=== PATIENT | female | born 1990 | race African-American/Black ===

== ENCOUNTER 2018-05-25 08:16 | Outpatient (CLI) | payer OTHER ==
--- NOTE | 2018-05-25 11:24 | Ultrasound Report ---
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 FINDINGS: The breasts are extremely dense, which limits the sensitivity mammography.No mass, architectural distortion or suspicious calcifications. Ultrasound of the right breast (including all four quadrants and the retroareolar area) demonstrated normal fibroglandular and fatty structures. No mass, cyst or shadowing. A right axillary lymph node has central fat a benign morphology and measures 1.1 x 0.5 x 0.7 cm. Ultrasound of the left breast (including all four quadrants and the retroareolar area) was performed. An oval slightly irregular solid hypoechoic mass at 8 o'clock 4 cm from the nipple measures 9 x 4 x 9 mm. Ultrasound of the left axilla demonstrated a single lymph node with central fat and benign morphology measuring 1.9 x 0.5 x 1.1 cm. IMPRESSION: 1. A solid 9 mm left breast mass at 8 o'clock 4 cm from the nipple. Recommend ultrasound-guided needle core biopsy of the left breast to exclude malignancy.2. Negative right breast. BI-RADS CATEGORY: 4--Suspicious I discussed the findings and the recommendation for a left needle core breast biopsy with the patient at the time of the examination. COMMENT: Patient follow-up letters are generated by our [employer] application.
== END 2018-05-25 08:17 | disposition home or self-care (01) ==
LOC: SPVWC 08:16
PROVIDERS: ATTEND Family Medicine
DX: R92.8 Other abnormal and inconclusive findings on diagnostic imaging of breast (principal)
CPT/HCPCS: 77066; 77067

== ENCOUNTER 2018-06-04 12:50 | Outpatient (CLI) | payer OTHER ==
--- NOTE | 2018-06-04 15:57 | History and Physical Report ---
History of Present Illness Date of examination: 06/04/18 Chief complaint: lt.breast nodule on u/s Medications and Allergies Allergies Allergy/AdvReac Type Severity Reaction Status Date / Time No Known Allergies Allergy Unverified 09/03/15 13:15
--- NOTE | 2018-06-04 15:59 | Procedure Note ---
Date of procedure: 06/04/18 Pre-op diagnosis: lt breast nodule Post-op diagnosis: same Procedure: u/s guided lt breast bx Findings: solid tissue Anesthesia: local Surgeon: CHELE PEARSON Estimated blood loss: none Pathology: list (lt breast) Specimen disposition: to lab Condition: stable Disposition: same day
--- NOTE | 2018-06-04 16:00 | Ultrasound Report ---
Ultrasound-guided left breast biopsy, marker placement, left mammogram: The patient presents with a hypoechoic lesion in the 8:00 location near the nipple. A lateral approach utilized. The skin was cleansed and draped. 1% lidocaine used for local anesthesia. A 13-gauge introducer was placed through which a 14-gauge Bard biopsy disposable spring-loaded device was utilized to take multiple sections through the lesion and ultrasound guidance. A marker was left in place under ultrasound observation. The entrance site was bandaged. A two-view mammogram confirmed positioning of the marker. There were no complications. The patient was given followup instructions and discharged.
== END 2018-06-04 12:51 | disposition home or self-care (01) ==
LOC: SPVWC 12:50
PROVIDERS: ATTEND Family Medicine
DX: N60.22 Fibroadenosis of left breast (principal); N61.0 Mastitis without abscess
CPT/HCPCS: 19083; 77065; 88305; A4648

== ENCOUNTER 2019-01-20 08:03 | Emergency (ER) | payer OTHER ==
[2019-01-20] MEDS ORDERED: NACL 0.9% 1000 ML 1,000 ML IV ONE (09:05)
[2019-01-20] MEDS ORDERED: KEPPRA 1,000 MG/NS 0.75% 100ML 1,000 MG/100 ML BAG IV ONE (09:08)
--- NOTE | 2019-01-20 09:10 | Emergency Department Report ---
ED Seizure HPI - General Chief Complaint: Seizure Stated Complaint: SEIZURE Time Seen by Provider: 01/20/19 08:52 Source: patient Mode of arrival: Stretcher Limitations: Altered Mental Status - History of Present Illness Initial Comments: 28-year-old Female presents to the ED following a seizure at home. Patient has history of ataxia, diagnosed a few months ago, however patient has apparently been symptomatic for approximately 2 years. Patient gets around using a walker. Patient has been having pain attacks that started in left leg and radiates up into her core. This is associated with a sharp and burning pain. Patient went to [facility] to visit family one month ago, returned 2 days ago. Patient states shortly after arriving in [facility] both legs became weak and she was unable to walk. States she got around in a wheelchair while she was there. During that time, she also began having pain attacks which included both legs, not just the left leg. Patient currently on Lyrica, however she states it does not seem to help her symptoms. Patient has baseline head and neck tremor, states tremors worsen and become generalized during her pain attacks, however she is usually awake and alert while this is happening. Boyfriend states this morning patient had a pain attack and began with her normal tremor which then generalized. He also reports patient's arms were extended out in front of her, which does not usually happen with her pain attacks. Patient was unresponsive, and also drooling from her mouth. The boyfriend states this lasted approximately 10 minutes. No history of seizures in the past. Patient denies fever, recent illn ess, or headache. LMP was last month. MD Complaint: seizure -: This morning Description of Episode: loss of consciousness, tonic-clonic movement -: minutes(s) (10) Witnessed:: Yes Trauma: No Seizure History: none Place: home Associated Symptoms: denies: chest pain, cough, fever/chills, shortness of breath - Related Data Allergies Allergy/AdvReac Type Severity Reaction Status Date / Time No Known Allergies Allergy Unverified 09/03/15 13:15 ED Review of Systems ROS: Stated complaint: SEIZURE Other details as noted in HPI Comment: All other systems reviewed and negative Constitutional: denies: chills, fever Respiratory: denies: cough, shortness of breath Cardiovascular: denies: chest pain Neurological: denies: headache ED Past Medical Hx - Past Medical History Previous Medical History?: Yes Hx of Cancer: Yes (ovarian) Additional medical history: li-fraumeni syndrome, chemo rt ataxia - Surgical History Past Surgical History?: Yes Hx Appendectomy: Yes (double mastectomy) Additional Surgical History: tumor removal - Social History Smoking Status: Never Smoker Substance Use Type: Marijuana ED Physical Exam - General Limitations: No Limitations General appearance: alert, in no apparent distress - Head Head exam: Present: atraumatic, normocephalic - Eye Eye exam: Present: normal appearance, PERRL, EOMI - ENT ENT exam: Present: mucous membranes moist - Neck Neck exam: Present: normal inspection - Respiratory Respiratory exam: Present: normal lung sounds bilaterally. Absent: respiratory distress - Cardiovascular Cardiovascular Exam: Present: normal rhythm, tachycardia - GI/Abdominal GI/Abdominal exam: Present: rigid. Absent: tenderness - Extremities Exam Extremities exam: Present: normal inspection - Neurological Exam Neurological exam: Present: alert, oriented X3, motor sensory deficit (bilat lower extremity weakness 3/5), other (head and neck resting tremor noted) - Psychiatric Psychiatric exam: Present: flat affect - Skin Skin exam: Present: warm, dry, intact, normal color ED Course Vital Signs 01/20/19 01/20/19 01/20/19 08:27 08:30 08:46 Temperature 99 F Pulse Rate 115 H 112 H 120 H Respiratory 16 14 21 Rate Blood Pressure 139/100 138/93 O2 Sat by Pulse 98 99 98 Oximetry 01/20/19 01/20/19 01/20/19 09:00 09:15 09:30 Temperature Pulse Rate 114 H 104 H 99 H Respiratory 20 11 L 17 Rate Blood Pressure 142/100 94/69 107/69 O2 Sat by Pulse 98 99 99 Oximetry 01/20/19 01/20/19 01/20/19 09:45 10:00 10:20 Temperature Pulse Rate 111 H 109 H Respiratory 25 H 14 Rate Blood Pressure 134/96 94/69 O2 Sat by Pulse 100 98 99 Oximetry 01/20/19 01/20/19 01/20/19 10:30 10:46 11:00 Temperature Pulse Rate 102 H 99 H 86 Respiratory 13 11 L 12 Rate Blood Pressure O2 Sat by Pulse 99 98 98 Oximetry 01/20/19 01/20/19 01/20/19 11:16 11:30 11:46 Temperature Pulse Rate 97 H 112 H 116 H Respiratory 13 17 13 Rate Blood Pressure O2 Sat by Pulse 98 99 98 Oximetry 01/20/19 01/20/19 12:00 12:16 Temperature Pulse Rate 91 H 113 H Respiratory 11 L 14 Rate Blood Pressure O2 Sat by Pulse 98 97 Oximetry - Reevaluation(s) Reevaluation #1: 01/20/19 11:05 Boyfriend states he spoke w/ pt's neurologist, Dr Terrell Le. Wants pt transferred to [place]. Attempted to contact him at [phone], however no answer. Will contact [place] Transfer Line. - Consultations Consultation #1: 01/20/19 11:35 Transfer accepted at [place] by Dr Blanca Davis, neurologist. ED Medical Decision Making - Lab Data Result diagrams: 01/20/19 09:24 01/20/19 09:24 - Radiology Data Radiology results: report reviewed, image reviewed - Medical Decision Making No further seizures here in ED. Tachycardia resolved at this time, however, pt becomes tachycardic into the 130s during her pain episodes, which have occurred multiple times here in the ED. Pt has been given 1L NS bolus, Keppra 1g bolus. Spoke w/ [facility] neurologist, Dr Davis. Accepts transfer. Awaiting room assignment and transport. - Differential Diagnosis CVA, electrolyte abnormality, infection Critical care attestation.: If time is entered above; I have spent that time in minutes in the direct care of this critically ill patient, excluding procedure time. ED Disposition Clinical Impression: Seizure, Ataxia Disposition: [id number]/TX-[id number] ANOTHER TYPE [facility] Is pt being admited?: No Condition: Stable Referrals: MARLENE EDMONDS MD [Primary Care Provider] - 3-5 Days Time of Disposition: 11:35
[2019-01-20 09:36] LABS: Basophils % (Auto) 0.4 % (0.0-1.8); Eosinophils % (Auto) 0.4 % (0.0-4.3); Hemoglobin 11.7 gm/dl (10.1-14.3); Lymphocytes # (Auto) 1.1 K/mm3 (1.2-5.4); Lymphocytes % (Auto) 10.3 % (13.4-35.0); Mean Corpuscular HGB Conc 34 % (30-34); Mean Corpuscular Volume 88 fl (79-97); Monocytes # (Auto) 0.6 K/mm3 (0.0-0.8); Monocytes % (Auto) 5.4 % (0.0-7.3); Platelet Count 372 K/mm3 (140-440); Red Cell Distribution Width 15.3 % (13.2-15.2)
[2019-01-20 09:52] LABS: BUN/Creatinine Ratio 26; Blood Urea Nitrogen 18 mg/dL (7-17); Calcium 9.8 mg/dL (8.4-10.2); Hemolysis Index 8
[2019-01-20 09:55] LABS: Bacteria,Urine 1+ /HPF (Negative); Bilirubin,Urine NEG (Negative); Blood,Urine NEG (Negative); Color,Urine Yellow (Yellow); Mucus,Urine FEW /HPF; Protein,Urine <15 mg/dL mg/dL (Negative); Urobilinogen,Urine < 2.0 mg/dL (<2.0)
[2019-01-20 09:55] LABS: Alanine Aminotransferase 24 units/L (7-56); Albumin 4.3 g/dL (3.9-5); Bilirubin,Direct < 0.2 mg/dL (0-0.2)
[2019-01-20 09:58] LABS: HCG Qualitative,Urine Negative (Negative)
[2019-01-20 10:06] LABS: Amphetamine Screen,Urine PRESUMPTIVE NEGATIVE; Benzodiazepines Screen,Urine PRESUMPTIVE NEGATIVE; Cocaine Screen,Urine PRESUMPTIVE NEGATIVE; Methadone Screen,Urine PRESUMPTIVE NEGATIVE; Opiate Screen,Urine PRESUMPTIVE NEGATIVE
[2019-01-20 10:24] LABS: Cannabinoid Screen,Urine PRESUMPTIVE POSITIVE
--- NOTE | 2019-01-20 11:14 | Cat Scan Report ---
CT HEAD WITHOUT CONTRAST: 01/20/19 08:03:00 CLINICAL: Seizure. TECHNIQUE: 2.5-mm noncontrast scans. COMPARISON:11/17/10 FINDINGS: The ventricles and sulci are slightly large for age and the cerebellar sulci have become more prominent compared to the last exam. A tiny chronic lacunar infarct of the left midbrain is new compared to the last exam. No suspicious hypodensity. No mass or mass effect. No hemorrhage, edema or extra-axial collection. The sinuses are clear. Normal orbits and soft tissues. The calvarium and skull base are intact. IMPRESSION: Interval development of mild cortical atrophy, worse in the cerebellum. No evidence of acute infarct or hemorrhage. A chronic lacunar infarct of the left midbrain.
[2019-01-20] MEDS ORDERED: TORADOL IV ONE (15:18)
[2019-01-20] MEDS ORDERED: ULTRAM PO ONE ×2 (15:34→19:08)
[2019-01-20] MEDS ORDERED: ULTRAM ONE (19:08)
[2019-01-20] MEDS ORDERED: DILAUDID ONE (21:43)
[2019-01-20] MEDS ORDERED: DILAUDID IV ONE (21:44)
[2019-01-21] MEDS ORDERED: DILAUDID ONE (03:19)
[2019-01-21] MEDS ORDERED: DILAUDID IV ONE (03:21)
[2019-01-21] MEDS ORDERED: BENADRYL IV ONE (09:32)
[2019-01-21] MEDS ORDERED: ATIVAN IV ONE (09:32)
[2019-01-21 12:09] VITALS: BP 93/64
== END 2019-01-21 13:49 | disposition other institution (70) ==
LOC: ED 08:03
DX: R56.9 Unspecified convulsions (principal); R27.0 Ataxia, unspecified; Z85.43 Personal history of malignant neoplasm of ovary
CPT/HCPCS: 36415; 70450; 80048; 80076; 80307; 81001; 81025; 85025; 96365; 96375; 96376; 99285; J1170; J1200; J1885; J1953; J2060; J7030